=== PATIENT | male | born 1960 | race Caucasian/White ===

== ENCOUNTER 2018-08-17 08:22 | Emergency (ER) | payer OTHER ==
[2018-08-17] MEDS: DIAZEPAM 5 MG TAB PO (08:55)
[2018-08-17] MEDS: KETOROLAC 30 MG INJ IM (08:55)
[2018-08-17] MEDS: DEXAMETHASONE 10 MG/ML 1 ML INJ IM (08:55)
[2018-08-17] MEDS: HYDROCODONE/APAP (10/325) TAB PO (10:44)
== END 2018-08-17 10:50 | disposition home or self-care (01) ==
LOC: FTE 08:22
DX: M54.2 Cervicalgia (principal); Z87.891 Personal history of nicotine dependence
CPT/HCPCS: 72125; 96372; 99285-25